=== PATIENT | female | born 1960 | race Caucasian/White ===

== ENCOUNTER 2017-06-04 08:21 | Emergency (ER) | payer MEDICAID ==
[~2017-06-04] VITALS: Ht 170.2 cm; Wt 65.8 kg
[2017-06-04 08:21] VITALS: BP 134/90
[~2017-06-04 08:21] MED LIST: NO CURRENT MEDS
== END 2017-06-04 09:08 | disposition home or self-care (01) ==
LOC: ER 08:25
DX: H66.92 Otitis media, unspecified, left ear (principal); J02.9 Acute pharyngitis, unspecified; Z88.8 Allergy status to other drugs, medicaments and biological substances; Z88.1 Allergy status to other antibiotic agents; Z88.6 Allergy status to analgesic agent
CPT/HCPCS: A4606; Z7610